=== PATIENT | male | born 1965 | race Caucasian/White ===

== ENCOUNTER 2025-02-09 06:27 | Day surgery (SDC) | payer OTHER, SELFPAY | END 2025-02-09 13:50 | disposition home or self-care (01) | LOC: GI 06:27 | PROVIDERS: ATTENDING PHYSICIAN Internal Medicine Gastroenterology | DX: R13.10 Dysphagia, unspecified (principal); R12 Heartburn; K31.89 Other diseases of stomach and duodenum; K22.9 Disease of esophagus, unspecified | CPT/HCPCS: 43239; 88305; 88342 ==